=== PATIENT | female | born 1995 | race Caucasian/White ===

== ENCOUNTER → 2017-07-18 | Outpatient (CLI) | payer BC ==
--- NOTE | 2017-07-18 15:30 | Diagnostic Imaging Report ---
PROCEDURE:PELVIC ULTRASOUND COMPARISON:None. INDICATIONS:Irregular Menstrual Cycle TECHNIQUE: Grayscale transverse and sagittal transabdominal images were obtained of the pelvis. Transvaginal imaging was not performed. FINDINGS: UTERUS: Normal in orientation and size measuring 5.9 x 2.4 x 3.6 cm. No masses. ENDOMETRIUM: Homogeneous without thickening measuring 0.4 cm in thickness. RIGHT OVARY: 3.4 x 2.2 x 1.8 cm (7 cc), normal in size. No masses or concerning cysts. LEFT OVARY: Not visualized secondary to overlying bowel gas. There is no free fluid within the pelvis. No adnexal masses. CONCLUSION: Left ovary not visualized secondary to overlying bowel gas. Otherwise, unremarkable transabdominal pelvic ultrasound. Dictated by: Efe Ramirez M.D. on 07/18/2017 at 15:38 Electronically approved by: Efe Ramirez M.D. on 07/18/2017 at 15:38
== END ==
LOC: US 14:22
PROVIDERS: ATTEND Family Medicine
DX: N92.6 Irregular menstruation, unspecified (principal)
CPT/HCPCS: 76856